=== PATIENT | female | born 1955 | race Two or more races ===

== ENCOUNTER 2019-12-30 12:54 | Inpatient (IN) | payer OTHER, SELFPAY ==
[2019-12-30] VITALS (7 sets, daily range): BP systolic 145–165; BP diastolic 63–95; PULSE 71–86; RESP 14–17; TEMP 36.5–37.8; O2SAT 97–99
--- NOTE | ~2019-12-30 | XR_ITS ---
EXAMINATION: XR abdomen NG/feed tube insert INDICATION: Nasogastric tube placement TECHNIQUE: Portable AP KUB-NG at 1517 hours COMPARISON: None available FINDINGS: The nasogastric tube is in the stomach. Again seen are multiple dilated small bowel loops. Contrast from earlier CT examination partially opacifies the urinary tract. The lung bases are clear. IMPRESSION: 1. Nasogastric tube in the stomach. 2. Small bowel obstruction. Reviewed, dictated and finalized at location A.
--- NOTE | ~2019-12-30 | XR_ITS ---
EXAMINATION: XR sm bowel follow through WS DATE: 01/01/2020 10:13 INDICATION: Small bowel obstruction TECHNIQUE: Biologist radiograph(s) of the abdomen was/were obtained. Oral contrast was administered thro ugh the nasogastric tube, and sequential radiographs of the abdomen were obtained until oral contrast was noted to be in the proximal colon. Six total images are obtained. COMPARISON: 12/31/2019 FINDINGS: The nasogastric tube is in the stomach. Transit time from the stomach to proximal colon was approximately 60 minutes. There is moderate distention of small bowel loops in the left mid abdomen. This transition is relatively collapsed distal small bowel in the right lower quadrant. No free intr aperitoneal gas is identified. IMPRESSION: 1. Dilated proximal small bowel, consistent with partial obstruction versus ileus. Reviewed, dictated and finalized at location A. IMPRESSION: 1. Dilated proximal small bowel, consistent with partial obstruction versus ile us.
--- NOTE | ~2019-12-30 | CT_ITS ---
EXAMINATION: CT abdomen pelvis w con DATE: 12/30/2019 14:12 INDICATION: Left lower quadrant pain. Nausea, vomiting and diarrhea. TECHNIQUE: Computed tomography (CT) of the abdomen and pelvis was performed with 100 mL Omnipaque-350 intravenous contrast. Automated exposure control and iterative reconstruction technique were employe d. The dose-length product was 187.83 mGy-cm. COMPARISON: None FINDINGS: Mild emphysema suggested however assessment is limited by respiratory motion which obscures fine pulm onary parenchymal detail. Heart size is normal. No pericardial or pleural effusion. Small sliding-typ e hiatal hernia. 3 subcentimeter low-attenuation hepatic cysts. Gallbladder, spleen, pancreas, bilate ral adrenal glands and left kidney are normal. Cluster of 3 anechoic cysts at the upper pole of the l eft kidney the largest measuring 2.1 cm. There is a 3 mm stone in one of the smaller cysts. Small bow el obstruction with multiple dilated loops of small bowel measuring up to 4.6 cm in maximal diameter. There is pseudo feces throughout a few of the small bowel loops immediately proximal to the transiti on point which is located in the central deep pelvis near what is either the fundus of the atrophic u terus or the vaginal cuff post hysterectomy. The colon is decompressed. Appendix is normal. Bladder i s normal. No free intraperitoneal gas or fluid. No pathologically enlarged abdominal or pelvic lympha denopathy. Intact appearing mild anterior wedging at T11-L1. 3 mm anterolisthesis L3 on L4 with fusio n across the bilateral facet joints. IMPRESSION: 1. Small bowel obstruction. 2. Small sliding-type hiatal hernia. 3. 3 mm nonobstructing stone within a right renal cyst. Reviewed, dictated and finalized at location A.
--- NOTE | ~2019-12-30 | US_ITS ---
EXAMINATION: US pelvic complete w TV DATE: 01/02/2020 13:31 INDICATION: Uterine abnormality. Left lower quadrant abdominal pain. TECHNIQUE: Multiple transabdominal and transvaginal sonographic images of the pelvis were obtained. COMPARISON: CT abdomen and pelvis 12/30/2019 FINDINGS: TRANSABDOMINAL ULTRASOUND: The uterus measures 4.7 x 4.2 x 1.6 cm. There is no free fluid in the pelvis. TRANSVAGINAL ULTRASOUND: The endometrial complex measures 3 mm in thickness. The ovaries are not visualized. IMPRESSION: 1. Normal uterus. Ovaries not visualized. Reviewed, dictated and finalized at location A.
--- NOTE | ~2019-12-30 | XR_ITS ---
EXAMINATION: XR abdomen/kub 1V INDICATION: Small bowel obstruction TECHNIQUE: Supine view of the abdomen is obtained. COMPARISON: 12/30/2019 FINDINGS: The nasogastric tube is in the stomach. Dilated loops of small bowel persist without signif icant change. The lung bases are clear. IMPRESSION: 1. Small bowel obstruction without significant change. Reviewed, dictated and finalized at location A.
--- NOTE | 2019-12-30 13:18 | ED.NAVMDI ---
HPI - Nausea/Vomiting/Diarrhea General Chief complaint: Nausea/Vomiting/Diarrhea Stated complaint: emesis Time Seen by Provider: 12/30/19 12:57 Source: patient and family Mode of arrival: ambulatory Limitations: no limitations and language barrier History of Present Illness HPI Narrative: Patient is a 64-year-old female who presents to emergency department with 3 days duration of belly pain nausea vomiting diarrhea patient has Zofran called in by primary care but is still having emesis noting aching pain in the left lower quadrant denies sick contacts or similar occurrence. Patient notes generalized aching pain worse with activity movement and emesis patient otherwise resting comfortably in the room upon arrival in no distress neurourologist was utilized denies any rectal bleeding or melena Related Data Home Medications Medication Instructions Recorded Confirmed No Home Medications 12/30/19 12/30/19 Allergies Allergy/AdvReac Type Severity Reaction Status Date / Time No Known Allergies Allergy Verified 12/30/19 13:30 Review of Systems Review of Systems: All systems reviewed & are unremarkable except as noted in HPI and below Exam Narrative: Exam Narrative: GENERAL: Well-appearing, well-nourished, and in no acute distress. HEAD: Normocephalic, atraumatic. EYES: PERRLA and EOMI. ENT: Nares clear, no rhinorrhea or epistaxis. Mucous membranes moist. CHEST: Clear to auscultation. No respiratory distress. No wheezes rales or rhonchi HEART: Regular rate and rhythm. No murmur heard. Normal peripheral pulses. ABDOMEN: Soft, left lower quadrant tenderness to palpation, nondistended EXTREMITIES: Normal range of motion. No edema. SKIN: Warm, dry, no rash. NEURO: No focal deficits. Alert and oriented x3. PSYCH: Normal mood and affect. Course Course Emergency Course: Patient in the room aware of case findings treatment plan and diagnosis resting comfortably in the room in no distress was evaluated by the surgery service in the emergency department Consultations Consultation #1: Discussed case with general surgery who will admit the patient like NG placed with n.p.o. status and hydration Date: 12/30/19 Time: 15:46 Vital Signs Vital signs: Vital Signs Temperature 97.8 F 12/30/19 13:20 Pulse Rate 79 12/30/19 13:20 Respiratory Rate 16 12/30/19 13:20 Blood Pressure 152/91 H 12/30/19 13:20 Pulse Oximetry 99 12/30/19 13:20 Temperature 97.7 F 12/30/19 15:17 Pulse Rate 78 12/30/19 15:17 Respiratory Rate 16 12/30/19 15:17 Blood Pressure 148/89 H 12/30/19 15:17 Pulse Oximetry 98 12/30/19 15:17 MDM - Nausea/Vomiting/Diarrhea MDM Narrative Medical decision making narrative: Patient found to have small bowel obstruction with NG placed was hydrated in the emergency department evaluated by surgery. Patient hemodynamically stable hydration started in the emergency department Lab Data Result diagrams: 12/30/19 13:27 12/30/19 13:27 Labs: Lab Results 12/30/19 12/30/19 12/30/19 Range/Units 13:27 13:27 14:25 WBC 9.4 (4.5-10.0) K/mm3 RBC 4.50 (4.2-5.4) M/mm3 Hgb 13.4 (12.0-15.0) g/dL Hct 40.9 (37.0-47.0) % MCV 90.9 (80-100) fl MCH 29.8 (26-34) pg MCHC 32.8 (32-36) g/dl RDW 13.1 (11.5-14.5) % Plt Count 246 (150-375) k/mm3 MPV 9.4 (7.4-10.4) fl Immature Gran % (Auto) 0.5 (0-0.5) % Neut % (Auto) 86.4 H (45.5-73.1) % Lymph % (Auto) 7.2 L (18.3-44.2) % [place] % (Auto) 5.7 (2.6-8.5) % Eos % (Auto) 0.0 (0-4.4) % Baso % (Auto) 0.2 (0.2-1.2) % Lymph # (Auto) 0.68 L (0.9-3.2) K/mm3 [place] # (Auto) 0.5 (0.1-0.6) K/mm3 Eos # (Auto) 0.0 (0-0.3) K/mm3 Baso # (Auto) 0.0 (0.0-0.1) K/mm3 Abs Immat Gran (auto) 0.05 H (0.00-0.031) K/mm3 Absolute Neuts (auto) 8.1 H (1.3-6.7) K/mm3 Absolute Nucleated RBC 0.0 (0.0-0.012) K/mm3 Nucleated RBC % 0.0 (0.0-0.2) % Sodium 133
[2019-12-30] MEDS: ONDANSETRON INJ 4 MG/2 ML VIAL IV PUSH (13:31)
[2019-12-30] MEDS: FAMOTIDINE 20 MG/2 ML VIAL IV PUSH ×2 (13:31→20:38)
[2019-12-30] MEDS: SODIUM CHLORIDE 0.9% IV 1,000 ML 999 ML IV CONT (13:32)
[2019-12-30 13:33] LABS: Basophils Percent Auto 0.2 % (0.2-1.2); Hematocrit 40.9 % (37.0-47.0); Hemoglobin 13.4 g/dL (12.0-15.0); Immature Granulocyte Absolute 0.05 K/mm3 (0.00-0.031); Immature Granulocyte Percent A 0.5 % (0-0.5); Lymphocytes Absolute Auto 0.68 K/mm3 (0.9-3.2); Lymphocytes Percent Auto 7.2 % (18.3-44.2); Mean Corpuscular HGB Conc 32.8 g/dl (32-36); Mean Corpuscular Hemoglobin 29.8 pg (26-34); Mean Corpuscular Volume 90.9 fl (80-100); Mean Platelet Volume 9.4 fl (7.4-10.4); Monocytes Absolute Auto 0.5 K/mm3 (0.1-0.6); Monocytes Percent Auto 5.7 % (2.6-8.5); Neutrophils Absolute Auto 8.1 K/mm3 (1.3-6.7); Neutrophils Percent Auto 86.4 % (45.5-73.1); Platelet Count Result 246 k/mm3 (150-375); Red Cell Distribution Width 13.1 % (11.5-14.5); White Blood Count 9.4 K/mm3 (4.5-10.0)
[2019-12-30 13:51] LABS: Alanine Aminotransferase 17 U/L (4-35); Albumin Level 4.6 g/dL (3.5-5.1); Alkaline Phosphatase 68 U/L (38-126); Aspartate Amino Transferase 40 U/L (14-36); Bilirubin,Total 0.8 mg/dL (0.2-1.3); Blood Urea Nitrogen 17 mg/dL (7-17); Calcium 9.1 mg/dL (8.4-10.2); Carbon Dioxide 27 mmol/L (22-30); Chloride 96 mmol/L (98-107); Estimated Glomerular Filt Rate > 60; Glucose 140 mg/dL (65-105); Lipase 27 U/L (23-300); Potassium 3.7 mmol/L (3.4-5.0); Sodium 133 mmol/L (137-145)
[2019-12-30 14:40] LABS: Add Urine Microscopic? YES; Appearance Urine Clear (Clear); Bilirubin Urine Negative (Negative); Blood Urine Negative (Negative); Color Urine Straw (Yellow); Glucose Urine UA Negative (Negative); Ketones Urine 1+ mg/dL (Negative); Leukocyte Esterase Ur Negative LEU/UL (Negative); Mucus Urine Rare /lpf; Nitrate Urine Negative (Negative); Protein Urine Negative (Negative); RBC Urine 0-2 /hpf (0-2); Specific Grav Ur 1.012 (1.001-1.035); Squamous Epithelial Cell Urine Rare /hpf (Few); Urobilinogen Urine Negative mg/dL (<2.0)
--- NOTE | 2019-12-30 15:19 | PC.NURSE ---
Patient tolerated placement of NG tube well
--- NOTE | 2019-12-30 16:08 | PM.IMHP ---
H&P: HPI History of Present Illness Chief complaint: Small bowel obstruction Narrative: Kendal Jay is a 64 year old [place]ian female who is otherwise reportedly healthy and presented to the emergency department today with complaints of abdominal pain, nausea, and vomiting. The patient speaks Estonian. Her son, Phan, is able to help translate and I also used the [employer] freight shipping agent for translation while obtaining the full history and physical. She reportedly had an onset of what she felt was heartburn three days ago after eating chicken salad. She reports that this continued but was mild. She then developed abdominal pain yesterday that was in the center of her abdomen, along with nausea, vomiting, and bloating. She called her PCP who prescribed her an antiemetic and felt this may be a viral illness. The patient then rested at home and tried taking the antiemetic, which was not alleviating the nausea and vomiting. Her abdominal pain continued to worsen and became generalized abdominal pain around the entire abdomen. Due to the persistent and worsening symptoms, the patient presented to the emergency department today for further evaluation. CT scan of the abdomen and pelvis showed a small bowel obstruction with a transition point in the central deep pelvis. Incidentally found on the CT was a small sliding hiatal hernia, three subcentimeter hepatic cysts, and 3 mm nonobstructing stone within a renal cyst. Our service was contacted by the ED physician for the small bowel obstruction. The patient is now being admitted to our service and an NG tube has been placed to low intermittent suction. The patient is now being evaluated in the emergency department. She reports about a 40% improvement in her abdominal pain since being in the ER. She states the nausea subsided following NG tube placement. She still feels bloated but states that has improved as well. She reports her bowels have been moving normally for her recently and her last bowel movement was around 9:30 am this morning. She states it was a normal bowel movement for her. She denies any diarrhea, constipation, fever, or chills. She denies any recent sick contacts or known COVID-19 exposure. Denies cough, shortness of breath, or congestion. No other complaints at this time. She has reportedly been self isolating in her house where her and her son live. The patient denies any previous abdominal surgeries and has two children who were vaginal deliveries. She does not recall a history of bowel obstructions in the past. With further questioning, she does report being hospitalized about 8 years ago, with what sounds like a bowel obstruction, while living in [place]. She states that her symptoms at that time were similar to what she is experiencing now. She was told that due to the hard foods she was eating, there was something blocking her bowels or they were pinched. She was told she needed surgery but wanted a second opinion and was transferred to a larger hospital in [facility]. She was given medication and only allowed to have liquids for about 3-4 days, then her symptoms improved. At the larger hospital, she was told that she did not need surgery and she was able to be discharged home. She does not recall having an NG tube and denies any surgery during this hospitalization. She reports that since that episode, she has not had any similar issues. Review of Systems Constitutional: Constitutional: Reports as per HPI, Denies chills, Denies excessive sweating, Denies fatigue, Denies fever(s), Denies headache(s) and Denies weakness Eyes: Eyes: Denies change in vision and Denies loss of vision ENT: Reports Normal hearing present, Denies dizziness and Denies headache(s) Cardiovascular: Cardiovascular: Denies chest pain, Denies syncope, Denies leg edema, Denies lightheadedness, Denies radiating jaw, neck or arm pain and Denies dyspnea Respiratory: Respiratory: Denies cough, Denies dyspnea and Denies wheezing Gastrointestinal: G
[2019-12-30] MEDS: LACTATED RINGERS 1,000 ML 125 ML IV CONT (17:46)
--- NOTE | 2019-12-30 18:11 | ADMGEN ---
This patient, Kendal Jay, was admitted to 2 Medical Room 254-. Patient/family oriented to hospital policies and general routines including ID bracelet, bed and alarms, visiting hours, pain management, procedures, bathroom and other care routines, personal items, smoking policy, room service/diet, and visiting hours. Valuables list has been completed. Information on how to activate the Rapid Response Team has been discussed. Patient/Family are encouraged to report perceived risks to care and to ask questions if they do not understand what they are told or what they should do.
[2019-12-31] MEDS: LACTATED RINGERS 1,000 ML 125 ML IV CONT (01:55)
[2019-12-31 02:00] VITALS: BP 141/67; PULSE 75; RESP 18; TEMP 36.3; O2SAT 98
[2019-12-31 05:57] LABS: Basophils Percent Auto 0.3 % (0.2-1.2); Hematocrit 36.6 % (37.0-47.0); Hemoglobin 12.2 g/dL (12.0-15.0); Immature Granulocyte Absolute 0.01 K/mm3 (0.00-0.031); Immature Granulocyte Percent A 0.1 % (0-0.5); Lymphocytes Absolute Auto 1.18 K/mm3 (0.9-3.2); Lymphocytes Percent Auto 16.3 % (18.3-44.2); Mean Corpuscular HGB Conc 33.3 g/dl (32-36); Mean Corpuscular Hemoglobin 30.5 pg (26-34); Mean Corpuscular Volume 91.5 fl (80-100); Mean Platelet Volume 9.8 fl (7.4-10.4); Monocytes Absolute Auto 0.8 K/mm3 (0.1-0.6); Monocytes Percent Auto 10.6 % (2.6-8.5); Neutrophils Absolute Auto 5.3 K/mm3 (1.3-6.7); Neutrophils Percent Auto 72.7 % (45.5-73.1); Platelet Count Result 213 k/mm3 (150-375); Red Cell Distribution Width 13.2 % (11.5-14.5); White Blood Count 7.2 K/mm3 (4.5-10.0)
[2019-12-31 06:00] VITALS: BP 147/66; PULSE 70; RESP 16; TEMP 36.4; O2SAT 98
[2019-12-31 06:00] LABS: Alanine Aminotransferase 15 U/L (4-35); Albumin Level 3.5 g/dL (3.5-5.1); Alkaline Phosphatase 54 U/L (38-126); Aspartate Amino Transferase 36 U/L (14-36); Bilirubin,Total 0.7 mg/dL (0.2-1.3); Blood Urea Nitrogen 13 mg/dL (7-17); Calcium 8.4 mg/dL (8.4-10.2); Carbon Dioxide 25 mmol/L (22-30); Chloride 100 mmol/L (98-107); Estimated Glomerular Filt Rate > 60; Glucose 83 mg/dL (65-105); Potassium 3.5 mmol/L (3.4-5.0); Sodium 132 mmol/L (137-145)
[2019-12-31] MEDS: FAMOTIDINE 20 MG/2 ML VIAL IV PUSH (08:19)
--- NOTE | 2019-12-31 09:03 | PC.NURSE ---
Steel Wheel Engraver used for patients assessment (#[id number]). Patient rating pain 2/10 cramping and points to generalized abdomen. Also has complaints of acid reflux. No other complaints or questions at this time. Administered IVPB Ofirmev for pain and scheduled pepcid for c/o acid reflux.
[2019-12-31 10:00] VITALS: BP 134/70; PULSE 72; RESP 16; TEMP 36.8; O2SAT 100
--- NOTE | 2019-12-31 12:57 | PM.PNGS ---
Progress Note: A&P Assessment and Plan (1) Small bowel obstruction: Code(s): K56.609 - Unspecified intestinal obstruction, unspecified as to partial versus complete obstruction Status: Acute Assessment and Plan: Continue NG decompression. Will get small-bowel follow-through tomorrow. Discussed possibly requiring exploratory laparotomy if obstruction persists. Will try stimulating bowels with a suppository today. Subjective Subjective Date/Time Seen: 12/31/19 12:57 Patient denies flatus or BM. Abdominal pain improving. States she feels hungry and weak. Discussion performed with interpreting service. Exam GI: Inspection: other (Mild distention) GI Palp: Yes Soft to palpation, Yes Tenderness to palpation present (GI) (Lower abdominal tenderness), No Guarding due to palpation present (GI) and No Rebound tenderness present Auscultation: Hypoactive bowel sounds present Objective Data Vital Signs Vital Signs: Vital Signs - 24 hr 12/30/19 13:20 12/30/19 13:35 12/30/19 15:17 Temperature 36.6 C 36.5 C Pulse Rate 79 86 78 Respiratory Rate 16 16 Blood Pressure 152/91 H 158/95 H 148/89 H Pulse Oximetry 99 98 12/30/19 16:54 12/30/19 17:31 12/30/19 21:30 Temperature 37.8 C H 36.5 C Pulse Rate 71 79 71 Respiratory Rate 14 17 16 Blood Pressure 149/90 H 165/83 H 145/63 H Pulse Oximetry 98 97 97 12/30/19 21:31 12/31/19 02:00 12/31/19 06:00 Temperature 36.5 C 36.3 C L 36.4 C Pulse Rate 71 75 70 Respiratory Rate 16 18 16 Blood Pressure 145/63 H 141/67 H 147/66 H Pulse Oximetry 97 98 98 Intake/Output Intake/Output: Intake & Output 12/28/19 12/29/19 12/30/19 12/31/19 23:59 23:59 23:59 23:59 Intake Total 1100 1650 Output Total 300 750 Balance 800 900 Meds/Results Medications: Active Medications Generic Name Dose Route Start Last Admin Trade Name Freq PRN Reason Stop Dose Admin Acetaminophen 1,000 mg in 100 mls @ 400 mls/hr 12/30/19 15:49 12/31/19 08:21 Ofirmev 1,000 Mg Ivpb IVPB 12/31/19 15:50 400 mls/hr Q6H PRN Administration Mild Pain (1-3) or Fever Potassium Chloride 10 meq/ 1,000 mls @ 100 mls/hr 12/31/19 12:55 Dextrose/Sodium Chloride IV CONT .Q10H MEKHI Morphine Sulfate 2 mg 12/30/19 16:38 Morphine Sulfate Inj IV PUSH Q2H PRN Pain Rated 7-10 Ondansetron HCl 4 mg 12/30/19 15:49 Zofran Inj IV PUSH Q4H PRN Nausea Pantoprazole Sodium 40 mg 12/31/19 13:00 Protonix Iv IV PUSH QAM MEKHI Phenol 1 spray 12/30/19 16:39 Chloraseptic [place] MUCOUS MEM PRN PRN Sore Throat Radiology Results: ITS Impressions Abdomen/Pelvis CT 12/30/19 14:16 IMPRESSION: 1. Small bowel obstruction. 2. Small sliding-type hiatal hernia. 3. 3 mm nonobstructing stone within a right renal cyst. Abdomen X-Ray 12/31/19 08:33 IMPRESSION: 1. Small bowel obstruction without significant change. Labs Labs: Laboratory Results - last 24 hr 12/30/19 12/30/19 12/30/19 13:27 13:27 14:25 WBC 9.4 RBC 4.50 Hgb 13.4 Hct 40.9 MCV 90.9 MCH 29.8 MCHC 32.8 RDW 13.1 Plt Count 246 MPV 9.4 Immature Gran % (Auto) 0.5 Neut % (Auto) 86.4 H Lymph % (Auto) 7.2 L [place] % (Auto) 5.7 Eos % (Auto) 0.0 Baso % (Auto) 0.2 Lymph # (Auto) 0.68 L [place] # (Auto) 0.5 Eos # (Auto) 0.0 Baso # (Auto) 0.0 Abs Immat Gran (auto) 0.05 H Absolute Neuts (auto) 8.1 H Absolute Nucleated RBC 0.0 Nucleated RBC % 0.0 Sodium 133 L Potassium 3.7 Chloride 96 L Carbon Dioxide 27 BUN 17 Creatinine 0.60 L Estim Creat Clear Calc Not Reportable Estimated GFR > 60 Glucose 140 H Calcium 9.1 Total Bilirubin 0.8 AST 40 H ALT 17 Alkaline Phosphatase 68 Total Protein 8.0 Albumin 4.6 Lipase 27 Urine Color Straw Urine Appearance Clear Urine pH 7.0 Ur Specific Tensed 1.012 Urine Protein Negati
[2019-12-31] MEDS: POTASSIUM CHLORIDE INJ 10 MEQ in DEXTROSE 5%/0.45% SOD CHL 1,000 ML 100 MEQ IV CONT ×2 (13:54→23:50)
[2019-12-31] MEDS: PANTOPRAZOLE SODIUM IV 40 MG VIAL IV PUSH (13:54)
[2019-12-31] MEDS: BISACODYL 10 MG SUPPOSITORY RECTAL (13:54)
[2019-12-31 14:00] VITALS: BP 138/71; PULSE 70; RESP 17; TEMP 36.6; O2SAT 99
--- NOTE | 2019-12-31 14:16 | PC.NURSE ---
Communicated via daughter in law to patient at bedside (phone). Daughter in law stating patient verifies understanding and has no further questions at this time. Discussed IVF changes, IVP protonix, suppository, and plan for SBS tomorrow.
[2019-12-31 18:00] VITALS: BP 144/69; PULSE 70; RESP 17; TEMP 37.1; O2SAT 99
[2019-12-31] MEDS: ONDANSETRON INJ 4 MG/2 ML VIAL IV PUSH (19:57)
[2019-12-31 22:00] VITALS: BP 155/84; PULSE 65; RESP 18; TEMP 36.7; O2SAT 99
[2020-01-01 05:38] LABS: Hematocrit 37.1 % (37.0-47.0); Hemoglobin 12.6 g/dL (12.0-15.0); Mean Corpuscular Hemoglobin 30.4 pg (26-34); Mean Corpuscular Volume 89.4 fl (80-100); Mean Platelet Volume 9.6 fl (7.4-10.4); Platelet Count Result 238 k/mm3 (150-375); Red Blood Count 4.15 M/mm3 (4.2-5.4); Red Cell Distribution Width 12.7 % (11.5-14.5); White Blood Count 5.6 K/mm3 (4.5-10.0)
[2020-01-01 06:00] VITALS: BP 160/84; PULSE 68; RESP 22; TEMP 37.1; O2SAT 99
[2020-01-01 06:13] LABS: Blood Urea Nitrogen 8 mg/dL (7-17); Calcium 8.3 mg/dL (8.4-10.2); Carbon Dioxide 26 mmol/L (22-30); Chloride 97 mmol/L (98-107); Estimated Glomerular Filt Rate > 60; Glucose 149 mg/dL (65-105); Magnesium 1.9 mg/dL (1.6-2.3); Potassium 3.1 mmol/L (3.4-5.0); Sodium 130 mmol/L (137-145)
[2020-01-01] MEDS: PANTOPRAZOLE SODIUM IV 40 MG VIAL IV PUSH (08:04)
--- NOTE | 2020-01-01 08:10 | PC.NURSE ---
Communicated with patient via pole lift operator (#[id number]). Discussed small bowel follow through test today, pain issues, and IVP Protonix she would be receiving this morning. Patient verbalized understanding through pole lift operator and no further questions at this time.
--- NOTE | 2020-01-01 08:47 | PC.NURSE ---
Patient to radiology for SBFT.
--- NOTE | 2020-01-01 10:30 | PC.NURSE ---
Patient return from SBFT. Per radiology transportation tech, I am able to hook patient back up to suction. Linens changed on patients bed and patients NGT returned to low intermittent suction. Patient reports 4 BM's today and only slight pain to abdomen. Will continue to monitor.
[2020-01-01] MEDS: POTASSIUM CHLORIDE INJ 10 MEQ in DEXTROSE 5%/0.45% SOD CHL 1,000 ML 100 MEQ IV CONT ×2 (10:41→20:29)
--- NOTE | 2020-01-01 12:20 | PM.PNGS ---
Progress Note: A&P Assessment and Plan (1) Small bowel obstruction: Code(s): K56.609 - Unspecified intestinal obstruction, unspecified as to partial versus complete obstruction Status: Acute Assessment and Plan: I reviewed the small-bowel follow-through with Radiology and personally. Proximal bowel is still dilated, but contrast makes it to the colon in 1 hour. Patient may still have a partial obstruction or or possibly an ileus or food bolus. Will remove NG tube and start clear liquids today. Will also get a pelvic ultrasound tomorrow to assess for any potential uterine abnormalities in the area the obstruction. Subjective Subjective Date/Time Seen: 01/01/20 12:20 Patient has had multiple bowel movements. Small-bowel follow-through completed this morning. No nausea while NG tube was clamped. Exam GI: Inspection: non-distended GI Palp: Yes Soft to palpation, No Tenderness to palpation present (GI) and No Guarding due to palpation present (GI) Percussion: Yes normal to percussion Auscultation: normal bowel sounds Objective Data Vital Signs Vital Signs: Vital Signs - 24 hr 12/31/19 14:00 12/31/19 18:00 12/31/19 22:00 Temperature 36.6 C 37.1 C 36.7 C Pulse Rate 70 70 65 Respiratory Rate 17 17 18 Blood Pressure 138/71 144/69 H 155/84 H Pulse Oximetry 99 99 99 01/01/20 06:00 Temperature 37.1 C Pulse Rate 68 Respiratory Rate 22 H Blood Pressure 160/84 H Pulse Oximetry 99 Intake/Output Intake/Output: Intake & Output 12/29/19 12/30/19 12/31/19 01/01/20 23:59 23:59 23:59 23:59 Intake Total 1100 2750 1000 Output Total 300 1500 750 Balance 800 1250 250 Meds/Results Medications: Active Medications Generic Name Dose Route Start Last Admin Trade Name Freq PRN Reason Stop Dose Admin Potassium Chloride 10 meq/ 1,000 mls @ 100 mls/hr 12/31/19 13:30 01/01/20 10:41 Dextrose/Sodium Chloride IV CONT 100 mls/hr .Q10H MEKHI Administration Morphine Sulfate 2 mg 12/30/19 16:38 Morphine Sulfate Inj IV PUSH Q2H PRN Pain Rated 7-10 Ondansetron HCl 4 mg 12/30/19 15:49 12/31/19 19:57 Zofran Inj IV PUSH 4 mg Q4H PRN Administration Nausea Pantoprazole Sodium 40 mg 12/31/19 13:00 01/01/20 08:04 Protonix Iv IV PUSH 40 mg QAM MEKHI Administration Phenol 1 spray 12/30/19 16:39 Chloraseptic [place] MUCOUS MEM PRN PRN Sore Throat Radiology Results: ITS Impressions Abdomen/Pelvis CT 12/30/19 14:16 IMPRESSION: 1. Small bowel obstruction. 2. Small sliding-type hiatal hernia. 3. 3 mm nonobstructing stone within a right renal cyst. Abdomen X-Ray 12/31/19 08:33 IMPRESSION: 1. Small bowel obstruction without significant change. Labs Labs: Laboratory Results - last 24 hr 01/01/20 01/01/20 05:18 05:18 WBC 5.6 RBC 4.15 L Hgb 12.6 Hct 37.1 MCV 89.4 MCH 30.4 MCHC 34.0 RDW 12.7 Plt Count 238 MPV 9.6 Sodium 130 L Potassium 3.1 L Chloride 97 L Carbon Dioxide 26 BUN 8 D Creatinine 0.50 L Estim Creat Clear Calc Not Reportable Estimated GFR > 60 Glucose 149 H Calcium 8.3 L Magnesium 1.9 Quality VTE Prophylaxis VTE prophylaxis: mechanical ordered
[2020-01-01 14:00] VITALS: BP 144/82; PULSE 65; RESP 15; TEMP 36.8; O2SAT 100
[2020-01-01 22:00] VITALS: BP 143/74; PULSE 94; RESP 18; TEMP 36.7; O2SAT 98
[2020-01-02 06:00] VITALS: BP 131/74; PULSE 65; RESP 16; TEMP 36.8; O2SAT 100
[2020-01-02] MEDS: POTASSIUM CHLORIDE INJ 10 MEQ in DEXTROSE 5%/0.45% SOD CHL 1,000 ML 100 MEQ IV CONT (06:52)
[2020-01-02] MEDS: PANTOPRAZOLE SODIUM IV 40 MG VIAL IV PUSH (10:00)
--- NOTE | 2020-01-02 10:27 | PC.NURSE ---
Assessment completed this morning with the assistance of an chief analytics officer via [employer]. Patient only speaks Urdu. Patient denies pain or nausea and states she feels good even after eating her clear liquid diet - per chief analytics officer. Patient denies concerns or questions at this time. Patient informed that she is scheduled for a pelvic ultrasound today and will see the doctor later.
--- NOTE | 2020-01-02 10:36 | PM.PNGS ---
Progress Note: A&P Assessment and Plan (1) Small bowel obstruction: Code(s): K56.609 - Unspecified intestinal obstruction, unspecified as to partial versus complete obstruction Status: Acute Assessment and Plan: This seems to be resolving and patient continues to clinically improve. Will start advancing her diet to full liquids. May be able to advance her further this afternoon and discharge if she continues to do well and tolerate a diet. Awaiting results of pelvic ultrasound today - looking for any potential uterine abnormalities in the area of obstruction. Additional Plan I discussed the patient's case and plan of care with Dr. Galeano. 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 Patient reports feeling well with no new complaints. Denies abdominal pain, nausea, vomiting, or bloating. Tolerating clear liquids. Reports bowels are moving with last BM this morning. No other complaints at this time. Also asked about Gynecology history. Last saw an OBGYN a few years ago in the [place] but is unsure what they did for her in view of testing due to the language barrier. Denies history of CRIMINAL INVESTIGATIVE AGENT issues. Review of Systems Review of Systems: All systems reviewed & are unremarkable except as noted in HPI and below Exam Const: General: comfortable, no acute distress, alert and awake GI: Inspection: normal to inspection and non-distended GI Palp: Yes Soft to palpation, No Tenderness to palpation present (GI) and No Guarding due to palpation present (GI) Auscultation: normal bowel sounds Neuro: General: moves all extremities Extrem: General: normal to inspection and no edema Psych: Appearance: grossly normal Mental Status: mental status grossly normal Affect: normal affect Attitude: cooperative Thought process: Normal thought process present Objective Data Vital Signs Vital Signs: Vital Signs - 24 hr 01/01/20 14:00 01/01/20 22:00 01/02/20 06:00 Temperature 36.8 C 36.7 C 36.8 C Pulse Rate 65 94 65 Respiratory Rate 15 18 16 Blood Pressure 144/82 H 143/74 H 131/74 Pulse Oximetry 100 98 100 Intake/Output Intake/Output: Intake & Output 12/30/19 12/31/19 01/01/20 01/02/20 23:59 23:59 23:59 23:59 Intake Total 1100 2750 2465 1000 Output Total 300 1500 1250 Balance 800 1250 1215 1000 Meds/Results Medications: Active Medications Generic Name Dose Route Start Last Admin Trade Name Freq PRN Reason Stop Dose Admin Morphine Sulfate 2 mg 12/30/19 16:38 Morphine Sulfate Inj IV PUSH Q2H PRN Pain Rated 7-10 Ondansetron HCl 4 mg 12/30/19 15:49 12/31/19 19:57 Zofran Inj IV PUSH 4 mg Q4H PRN Administration Nausea Pantoprazole Sodium 40 mg 12/31/19 13:00 01/02/20 10:00 Protonix Iv IV PUSH 40 mg QAM MEKHI Administration Phenol 1 spray 12/30/19 16:39 Chloraseptic [place] MUCOUS MEM PRN PRN Sore Throat Radiology Results: ITS Impressions Abdomen/Pelvis CT 12/30/19 14:16 IMPRESSION: 1. Small bowel obstruction. 2. Small sliding-type hiatal hernia. 3. 3 mm nonobstructing stone within a right renal cyst. Abdomen X-Ray 12/31/19 08:33 IMPRESSION: 1. Small bowel obstruction without significant change. Small Bowel X-Ray 01/01/20 13:32 IMPRESSION: 1. Dilated proximal small bowel, consistent with partial obstruction versus ileus. Quality VTE Prophylaxis VTE prophylaxis: mechanical ordered
--- NOTE | 2020-01-02 13:00 | PC.NURSE ---
Using lap polisher per [facility] explained pelvic ultrasound to patient and she voices understanding and is fillling her bladder.
[2020-01-02 14:00] VITALS: BP 163/81; PULSE 79; RESP 16; TEMP 36.2; O2SAT 100
--- NOTE | 2020-01-02 14:16 | P.DS_ITS ---
DS: Diagnosis Admitting Diagnosis Admitting Diagnosis: Unspecified intestinal obstruction, unspecified as to parti al versus complete obstruction Discharge Diagnosis (1) Small bowel obstruction: Code(s): K56.609 - Unspecified intestinal obstruction, unspecified as to partial versus complete obstruction Status: Resolved DS: Summary Hospital Course Reason for hospitalization: Small-bowel obstruction Hospital Course: This is a 64-year-old woman who presented to the emergency department on 12/29 with abdominal pain, bloating, and nausea and vomiting. CT showed evidence of a small-bowel obstruction. NG tube was placed and she was admitted to the hospital. She did have 1 bowel movement on Thursday and her symptoms were significantly improved with NG decompression. A Gastrografin SBFT was obtained on 12/31. This showed some persistently dilated small bowel, but contrast reached the colon within 1 hour. She had multiple bowel movements on 12/31. Her NG tube was then removed on 12/31 and she was started on clear liquid diet. On 01/01 her diet was advanced as tolerated. After tolerating a regular diet, the decision was made to discharge her home. A pelvic ultrasound was obtained on 01/01 to rule out any potential uterine abnormalities that could have caused the obstruction. She has not had any surgeries and therefore the cause of the obstruction is unknown. This did appear to resolve with conservative measures. She was instructed to stay on a soft diet for the next week and return for any recurrent symptoms. Status at Discharge Functional status at discharge: independent ambulation Overall status at discharge: patient is back to baseline Time Spent with Patient Time attestation: Total time spent providing and/or coordinating discharge services: Time spent: Less than 30 minutes Discharge Plan Discharge Attending physician on discharge: Dylan Galeano Consulting providers: Ana Bosch ; Max Carter Discharging Clinician: Dylan Galeano Patient Disposition: Home, Self-Care Activity: unlimited Diet: as tolerated Discharge Instructions: Eat a soft diet for the first week, then may eat regular diet if doing well. Take OTC laxative like Milk of Magnesia or MiraLax as needed for constipation. Patient Instructions: Antibiotic Form Stand Alone Forms: General Discharge Information Follow-up/Referrals: Ana Bosch DO [Physician] - Call for Appointment Dylan Galeano DO [Physician] - Other (Follow up as needed for recurrent symptoms or return to Emergency Department.) Discharge Medications: Continued cholecalciferol (vitamin D3) 25 mcg (1,000 unit) Capsule 25 mcg PO DAILY RF: 0 [place]-3 350 mg-235 mg- 90 mg-597 mg Capsule,Delayed Release(Dr/Ec) 1 cap PO DAILY RF: 0 Date of admission: 12/30/19 15:49 Primary Care Provider: PHYSICIAN,CABINETMAKER APPRENTICE Admitting Provider: Dylan Galeano Attending physician on admission: Dylan Galeano Condition: Stable Quality VTE Prophylaxis VTE prophylaxis: mechanical ordered
--- NOTE | 2020-01-02 17:00 | PC.NURSE ---
Via filtration operator with [employer], explained to patient that she needs to tolerate some regular food in order to be discharged. Patient given regular tray and is eating now.
--- NOTE | 2020-01-02 18:36 | PC.NURSE ---
Patient given all d/c instructions utilizing [employer] payroll accountant. Also explained instructions to patient's son and [id number] over the phone with the patient's consent. Patient is getting dressed and voiced understanding of all instructions according to payroll accountant.
== END 2020-01-02 19:00 | disposition home or self-care (01) | DRG 247 ==
LOC: ANHED 15:51 → ANH2MED 16:10
PROVIDERS: Emergency Medicine Emergency Medical Services; Admitting Provider Surgery; Emergency Provider Family Medicine; Visit Provider Surgery
DX: K56.609 Unspecified intestinal obstruction, unspecified as to partial versus complete obstruction (principal)
CPT/HCPCS: 36415; 74018; 74177; 74250; 76830; 76856; 80048; 80053; 81001; 83690; 83735; 85025; 85027; 87086; 87088; 96361; 96374; 96375; 99285; A9270; C9113; J0131; J2405; J3480; J7030; J7120; Q9967